=== PATIENT | male | born 1990 | race Caucasian/White ===

== ENCOUNTER 2023-02-22 04:34 | Emergency (ER) | payer BC, SELFPAY ==
--- NOTE | ~2023-02-22 | XR_ITS ---
EXAMINATION: XR chest 2V DATE: 02/22/2023 04:53 INDICATION: Left-sided chest pain extending into the abdomen TECHNIQUE: PA and lateral views of the chest were obtained. COMPARISON: None FINDINGS: The lungs are clear with no focal airspace opacities, pulmonary edema, pleural effusion or pneumothor ax. The cardiomediastinal silhouette is normal. Visualized bones and soft tissues are unremarkable. IMPRESSION: 1. Normal chest radiograph. Reviewed, dictated and finalized at location A. IMPRESSION: 1. Normal chest radiograph.
--- NOTE | 2023-02-22 04:36 | ECG_ITS ---
Measurements Intervals [place] Rate: 52 P: 33 MN: 156 QRS: 45 QRSD: 93 T: 33 QT: 420 QTc: 392 Interpretive Statements SINUS BRADYCARDIA NONSPECIFIC ST & T-WAVE ABNORMALITY NO PREVIOUS ECG AVAILABLE FOR COMPARISON Electronically Signed On 02-22-2023 13:42:42 CDT by Loida Brownlee M.D.
[2023-02-22 04:38] VITALS: PULSE 55; RESP 15; TEMP 36.4; O2SAT 100
[2023-02-22 04:46] VITALS: BP 161/105
--- NOTE | 2023-02-22 04:48 | ED.CHESTPAIN ---
HPI - Chest Pain General Chief Complaint: Chest Pain <Nidia Sparrow MD - Last Filed: 02/22/23 07:24> Stated Complaint: chest pain since 2199 yesterday. <Nidia Sparrow MD - Last Filed: 02/22/23 07:24> Time Seen by Provider: 02/22/23 04:39 <Nidia Sparrow MD - Last Filed: 02/22/23 07:24> History of Present Illness HPI narrative: Patient is a 32-year-old male presenting with chest pain. Patient states that he had a long day of work yesterday and when he started relaxing at home he developed some left-sided chest pain. States that it felt like a squeezing. States that he was just resting when it started. States that it has now moved into his epigastrium. States that he was unable to sleep so he came in for evaluation. He has not tried anything for pain. He denies associated shortness of breath or lightheadedness. States that he has been nauseated. Denies vomiting. Denies alleviating factors. Denies pleuritic component of pain. States that positional changes make the pain worse. No recent fevers or chills, headache, numbness or weakness, cough, leg swelling. <Nidia Sparrow MD - Last Filed: 02/22/23 07:24> Related Data Allergies/Adverse Reactions: Allergies Allergy/AdvReac Type Severity Reaction Status Date / Time No Known Allergies Allergy Verified 02/22/23 04:52 <Nidia Sparrow MD - Last Filed: 02/22/23 07:24> Review of Systems Review of Systems: All systems reviewed & are unremarkable except as noted in HPI and below <Nidia Sparrow MD - Last Filed: 02/22/23 07:24> Exam Narrative: GENERAL: Well-appearing, well-nourished, and in no acute distress. HEAD: Normocephalic, atraumatic. EYES: PERRLA and EOMI. ENT: Nares clear, no rhinorrhea or epistaxis. Mucous membranes moist. NECK: Supple. CHEST: Clear to auscultation. No respiratory distress. HEART: Regular rate and rhythm. No murmur heard. Normal peripheral pulses. ABDOMEN: Soft, nontender, nondistended EXTREMITIES: Normal range of motion. No edema. SKIN: Warm, dry, no rash. NEURO: No focal deficits. Alert and oriented x3. PSYCH: Normal mood and affect. <Nidia Sparrow MD - Last Filed: 02/22/23 07:24> Course Reevaluation(s) Reevaluation #1: Patient care was signed out to me by Dr Sparrow with delta troponin pending. Patient's second troponin was negative. Patient's EKG is normal sinus rhythm. Patient's chest x-ray showed no acute cardiopulmonary abnormality. Patient was updated on results of his work-up and patient was encouraged to have close follow-up with his primary care physician. All questions concerns were addressed. Patient was well-appearing and patient was comfortable with the plan for discharge and close follow-up with his primary care physician. <Barber Daniel MD - Last Filed: 02/22/23 18:09> Vital Signs Vital signs: Vital Signs Temperature 97.6 F 02/22/23 04:38 Pulse Rate 55 L 02/22/23 04:38 Respiratory Rate 15 02/22/23 04:38 Pulse Oximetry 100 02/22/23 04:38 Oxygen Delivery Room Air 02/22/23 04:38 Temperature 97.6 F 02/22/23 04:38 Pulse Rate 61 02/22/23 08:38 Respiratory Rate 20 02/22/23 08:38 Blood Pressure 158/71 H 02/22/23 08:38 Pulse Oximetry 97 02/22/23 08:38 Oxygen Delivery Room Air 02/22/23 04:38 <Nidia Sparrow MD - Last Filed: 02/22/23 07:24> Vital Signs Temperature 97.6 F 02/22/23 04:38 Pulse Rate 55 L 02/22/23 04:38 Respiratory Rate 15 02/22/23 04:38 Pulse Oximetry 100 02/22/23 04:38 Oxygen Delivery Room Air 02/22/23 04:38 Temperature 97.6 F 02/22/23 04:38 Pulse Rate 61 02/22/23 08:38 Respiratory Rate 20 02/22/23 08:38 Blood Pressure 158/71 H 02/22/23 08:38 Pulse Oximetry 97 02/22/23 08:38 Oxygen Delivery Room Air 02/22/23 04:38 <Barber Daniel MD - Last Filed: 02/22/23 18:09> MDM - Chest Pain MDM Narrative Medical decision making narrati
[2023-02-22 04:54] LABS: Basophils Absolute Auto 0.1 K/mm3 (0.0-0.1); Basophils Percent Auto 0.5 % (0.2-1.2); Eosinophils Absolute Auto 0.5 K/mm3 (0-0.3); Eosinophils Percent Auto 5.4 % (0-4.4); Hematocrit 44.1 % (42.0-52.0); Hemoglobin 15.1 g/dL (14.0-18.0); Immature Granulocyte Absolute 0.03 K/mm3 (0.00-0.031); Immature Granulocyte Percent A 0.3 % (0-0.5); Lymphocytes Absolute Auto 2.65 K/mm3 (0.9-3.2); Lymphocytes Percent Auto 28.6 % (18.3-44.2); Mean Corpuscular HGB Conc 34.2 g/dl (32-36); Mean Corpuscular Volume 90.6 fl (80-100); Mean Platelet Volume 9.4 fl (7.4-10.4); Monocytes Absolute Auto 0.7 K/mm3 (0.1-0.6); Monocytes Percent Auto 7.8 % (2.6-8.5); Neutrophils Absolute Auto 5.3 K/mm3 (1.3-6.7); Neutrophils Percent Auto 57.4 % (45.5-73.1); Platelet Count Result 215 k/mm3 (150-375); Red Blood Count 4.87 M/mm3 (4.6-6.20); White Blood Count 9.3 K/mm3 (4.5-10.0)
[2023-02-22] MEDS: SODIUM CHLORIDE 0.9% IV 1,000 ML 999 ML IV CONT (04:57)
[2023-02-22] MEDS: KETOROLAC 15 MG/ML VIAL (*BKC) IV PUSH (04:58)
[2023-02-22 05:03] LABS: Alanine Aminotransferase 34 U/L (6-50); Albumin Level 5.3 g/dL (3.5-5.1); Alkaline Phosphatase 58 U/L (38-126); Anion Gap 13 mmol/L (8-16); Aspartate Amino Transferase 38 U/L (17-59); Bilirubin,Total 0.9 mg/dL (0.2-1.3); Blood Urea Nitrogen 19 mg/dL (9-20); Calcium 9.7 mg/dL (8.4-10.2); Carbon Dioxide 27 mmol/L (22-30); Chloride 100 mmol/L (98-107); Estimated CRCL calculation 91 ml/min; Estimated Glomerular Filt Rate > 60; Glucose 109 mg/dL (65-110); Lipase 203 U/L (23-300); Potassium 3.5 mmol/L (3.4-5.0); Sodium 140 mmol/L (137-145)
[2023-02-22 05:07] LABS: INR 0.9; Prothrombin Time 12.4 Seconds (11.1-14.7)
[2023-02-22 05:08] LABS: Partial Thromboplastin Time 28.2 SECONDS (22.3-36.8)
[2023-02-22 05:15] LABS: Troponin I < 0.012 ng/mL (0.000-0.034)
--- NOTE | 2023-02-22 05:25 | PC.NURSE ---
Pt states pain has improved to 2/10, but reports same level of pressure in lower abd. EDP Sparrow notified.
[2023-02-22 06:01] VITALS: BP 155/99; PULSE 72; RESP 14; O2SAT 100
[2023-02-22] MEDS: ONDANSETRON INJ 4 MG/2 ML VIAL IV PUSH (07:06)
[2023-02-22 07:19] VITALS: BP 164/96; PULSE 56; RESP 22; O2SAT 100
--- NOTE | 2023-02-22 07:20 | PC.NURSE ---
assumed care of pt. pt resting on stretcher. pt states he has discomfort in left abd, upper abd, and lower chest. provider at bedside, updated pt on plan of care. no questions at this time
[2023-02-22] MEDS: SIMETHICONE 125 MG CHEW TAB PO (07:27)
[2023-02-22 07:54] LABS: Troponin I < 0.012 ng/mL (0.000-0.034)
[2023-02-22 08:38] VITALS: BP 158/71; PULSE 61; RESP 20; O2SAT 97
== END 2023-02-22 08:40 | disposition home or self-care (01) ==
PROVIDERS: Emergency Provider Emergency Medicine; PCP Family Medicine Sports Medicine
DX: R07.89 Other chest pain (principal)
CPT/HCPCS: 36415; 71046; 80053; 83690; 84484; 85025; 85610; 85730; 93005; 96361; 96365; 96375; 99284; A9270; J0131; J1885; J2405; J7030

== ENCOUNTER 2023-12-11 22:07 | Emergency (ER) | payer BC, SELFPAY | END 2023-12-11 22:24 | disposition left against medical advice (07) | PROVIDERS: PCP Family Medicine Sports Medicine | DX: Z53.21 Procedure and treatment not carried out due to patient leaving prior to being seen by health care provider (principal) | CPT/HCPCS: 99199 ==